=== PATIENT | female | born 1950 | race Caucasian/White ===

== ENCOUNTER → 2021-07-31 | Outpatient (CLI) | payer OTHER ==
--- NOTE | ~2021-07-31 | PFR/MVV ---
[facility] [place] [address] PULMONARY FUNCTION MVV/REPORT Name: ANJEL BRADLEY Room #: REG MONTY Rodriguze#: [id number] Admission: 07/31/21 Attend Phys: YNES Mo Discharge: Date of : 48 Report #: [id number] THIS REPORT FOR: //name// >> SPIROMETRY: (BTPS) Height: 65 in cm Weight: 219 lbs kg Exam Date: 07/31/21 PRE-RX POST-RX PRED BEST %PRED BEST %PRED %CHG FVC LITERS . 2.92 . 2.49 . 85 . 2.45 . 84 . -2 FEV1 LITERS . 2.08 . 1.95 . 94 . 2.00 . 96 . 2 FEV1/FVC % . 71 . 78 . 110 . 82 . 114 . 4 ZOH87-60% L/Sec . 2.32 . 1.69 . 73 . 2.15 . 92 . 28 PEF L/SEC . 5.58 . 6.56 . 118 . 6.23 . 112 . -5 FEF50/FIF50 UNITLESS . 2.83 . 2.94 . 104 . 4.26 . 151 . 45 MVV L/Min . . . f 1/Min . . . >> LUNG VOLUMES: (BTPS) PRE-RX POST-RX PRED AVG %PRED AVG %PRED %CHG VC Liters . 2.92 . 2.53 . 87 . . . TLC Liters . 5.01 . 3.86 . 77 . . . RV Liters . 2.02 . 1.33 . 65 . . . RV/TLC % . 41 . 34 . 85 . . . FRC PL Liters . 2.35 . 1.87 . 79 . . . FRC N2 Liters . 2.35 . . . . . ERV Liters . 0.98 . 0.61 . 62 . . . IC Liters . 1.97 . 1.99 . 101 . . . >> DIFFUSION: DLCO ml/Min/mmHg . 24.0 . 20.8 . 86 . . . DL Cindy ml/Min/mmHg . 24.0 . 20.8 . 86 . . . DLCO/VA ml/Min/mmHg . 3.52 . 6.31 . 179 . . . VA Liters . . 3.29 . . . . COMMENTS: COMMENTS: >> RESISTANCE: [facility] [address] [place] [address] PULMONARY FUNCTION MVV/REPORT Name: ANJEL BRADLEY [id number] Admission: 07/31/21 Attend Phys: YNES Mo Discharge: Date of : 48 Report #: [id number] PRE-RX PRED AVG %PRED Raw Total cmH20/L/Sec . . 2.44 . Raw Insp cmH20/L/Sec . . 0.80 . Raw Exp cmH20/L/Sec . . 1.33 . Raw cmH20/L/Sec . 1.66 . 1.31 . 79 Gaw L/Sec/cmH20 . 0.563 . 0.761 . 135 sRaw cmH20 Sec . 3.90 . 3.94 . 101 sGaw l/cmH20 Sec . 0.257 . 0.254 . 99 Vtq Liters . . 3.00 . # = OUTSIDE 95% CONFIDENCE INTERVAL CALIBRATION: PRED: 3.00 ACTUAL: EXP 3.01 INSP 3.02 [place] [id number] [place] [id number] >> INTERPRETATION/IMPRESSION: PULMONARY FUNCTION STUDY SPIROMETRY: FEV1 is 1.95 liters (94% predicted), FVC is 2.49 liters (85% predicted), FEV1/FVC ratio is 78%. There is no significant response to bronchodilator therapy. Total lung capacity is 3.86 liters (77% predicted). Diffusing capacity is 86%. IMPRESSION: Pulmonary function studies are consistent with a mild restrictive airflow defect. There is no response to bronchodilator therapy. Diffusing capacity is normal. By: Tristin Moss MD /nt
== END ==
LOC: CAT 10:09
PROVIDERS: ATTEND Nurse Practitioner Family
DX: Z20.822 Contact with and (suspected) exposure to COVID-19 (principal); M32.9 Systemic lupus erythematosus, unspecified; J84.9 Interstitial pulmonary disease, unspecified; M25.551 Pain in right hip; M25.561 Pain in right knee; M25.562 Pain in left knee; E55.9 Vitamin D deficiency, unspecified; M89.49 Other hypertrophic osteoarthropathy, multiple sites; I10 Essential (primary) hypertension; Z68.36 Body mass index [BMI] 36.0-36.9, adult